=== PATIENT | female | born 1950 | race Caucasian/White ===

== ENCOUNTER 2019-01-07 14:45 | Inpatient (IN) ==
[2019-01-07] MEDS ORDERED: ASPIRIN PO ONE (14:54)
--- NOTE | 2019-01-07 15:03 | EKG Report ---
Test Performed on : 01/07/2019 2:48:48 PM Test Reason : cp Blood Pressure : / mmHG Vent. Rate : 138 BPM Atrial Rate : 276 BPM P-R Int : 000 ms QRS Dur : 082 ms QT Int : 360 ms P-R-T Axes : 000 007 075 degrees QTc Int : 545 ms Atrial flutter. with 2:1 AV conduction. Low voltage QRS ST elevation, consider lateral injury or acute infarct ACUTE UT / STEMI Abnormal ECG When compared with ECG of 25-SEP-2018 11:45, Significant changes have occurred Unconfirmed Result
[2019-01-07] MEDS ORDERED: NS 1,000 ML IV ONE ×2 (15:06→21:05)
[2019-01-07] MEDS ORDERED: CARDIZEM IV ONE (15:07)
--- NOTE | 2019-01-07 15:54 | Diag Imaging Result Doc PS360 ---
EXAM: CHEST-1 VIEW INDICATION: SOB TECHNIQUE: One view COMPARISON: 09/25/2018 FINDINGS: The lungs are grossly clear. There is no discrete pleural fluid collection or pneumothorax. The cardiomediastinal silhouette and central vasculature are grossly unremarkable. IMPRESSION: No evidence of acute pathology by plain radiograph. Electronically signed by Je Ortiz 01/07/2019 3:52 PM
[2019-01-07 16:08] LABS: BASO# 0.03 X1000 (0.0-0.2); BASO% 0.2 % (0.0-0.8); EOS# 0.12 X1000 (0.0-0.7); EOS% 0.8 % (0.0-10.0); HEMATOCRIT 44.5 % (37.0-47.0); IMM GRAN# 0.05 X1000 (0.0-0.04); IMM GRAN% 0.4 % (0.0-0.5); LYMPH# 2.02 X1000 (1.2-3.4); LYMPH% 14.2 % (20.5-51.1); MCH 29.3 PG (27-31); MCHC 31.5 g/dL (33-37); MCV 93.1 FL (81-99); MONO# 1.09 X1000 (0.11-0.59); MONO% 7.7 % (1.7-9.3); MPV 9.6 FL (7.4-10.4); NEUT% 76.7 % (42.2-75.2); PLT 381 X1000 (130-400); RBC 4.78 XMIL (4.2-5.4); RDW 13.6 % (11.5-14.5); WBC 14.21 X1000 (4.8-10.8)
[2019-01-07 16:18] LABS: INR 1.19; PROTIME 16.1 Seconds (11.0-16.0)
[2019-01-07 16:19] LABS: PTT 36.1 Seconds (22.3-41.8)
[2019-01-07] MEDS ORDERED: LOPRESSOR IV ONE (16:45)
[2019-01-07 17:04] LABS: URINE SOURCE CLEAN CATCH
[2019-01-07 17:13] LABS: BILIRUBIN URINE NEGATIVE (NEGATIVE); BLOOD URINE NEGATIVE (NEGATIVE); COLOR YELLOW; GLUCOSE URINE NEGATIVE (NEGATIVE); KETONE URINE NEGATIVE (NEGATIVE); LEUKOCYTES URINE TRACE (NEGATIVE); NITRITE URINE NEGATIVE (NEGATIVE); PH URINE 5.5; PROTEIN URINE TRACE mg/dL (NEGATIVE); SP GRAVITY URINE 1.027; TURBIDITY URINE CLEAR (CLEAR); UROBILINOGEN URINE 2 mg/dL (NORMAL)
[2019-01-07 17:14] LABS: UR EPITHELIAL CELLS <10 /HPF (<10); URINE BACTERIA NEGATIVE /HPF; URINE RBC <10 /HPF (<10); URINE WBC <10 /HPF (<10)
[2019-01-07 17:22] LABS: AGAP 17; ALB/GLOB RATIO 1.4; ALBUMIN 4.3 g/dL (3.5-5.0); ALKALINE PHOSPHATASE 141 U/L (32-104); BUN 20 mg/dL (8-22); CALCIUM 9.6 mg/dL (8.8-10.2); CHLORIDE 101 mmol/L (98-107); CK PROFILE 28 U/L (24-173); COSMO 280; CREATININE 0.8 mg/dL (0.5-0.9); ESTIMATED GFR > 60; GLUCOSE 89 mg/dL (70-104); GOT 27 U/L (10-30); GPT 33 U/L (10-36); POTASSIUM 4.6 mmol/L (3.5-5.1); SODIUM 139 mmol/L (136-145); TCO2 21 mmol/L (25-35); TOTAL BILIRUBIN 0.25 mg/dL (0.20-1.00); TOTAL PROTEIN 7.3 g/dL (6.3-8.3)
[2019-01-07] MEDS ORDERED: LASIX IV ONE (17:27)
[2019-01-07] MEDS ORDERED: LANOXIN IV ONE (17:36)
--- NOTE | 2019-01-07 17:51 | PROVIDER DOCUMENTATION ---
This chart was entered by Karyna Edwards Scribe, acting as scribe for Woodrow Royal MD. HPI-Cardiac General - General Chief Complaint: Palpitations Stated Complaint: HIGH HEART RATE Time Seen by Provider: 01/07/19 15:00 Source: patient Allergies/Adverse Reactions: Patient Allergies Allergy/AdvReac Type Severity Reaction Status Date / Time ciprofloxacin [From Cipro] Allergy ITCHING Verified 09/25/18 12:11 Iodinated Contrast- Oral and Allergy HIVES Verified 09/25/18 12:11 IV Dye [IV Dye] - History of Present Illness-Cardiac Nature of Presenting Problem: Patient is a 68 year old female who presents to the ED with palpitations. Patient states she was at Dr. Alvarez office and was informed her heart rate was elevated. Patient denies chest pain and shortness of breath. Location: reports: central Quality of Pain: reports: none Severity in ED: mild Onset/Duration: unsure Timing: still present Context/Activities at Onset: reports: light activity Modifying Factors: improves with: nothing Palpitation Quality: fast/pounding heart beat Associated Symptoms: reports: denies symptoms Similar Symptoms Previously?: No Recently Seen Here or By Another Healthcare Provider: Yes Review of Systems - Adult - REVIEW OF SYSTEMS - ADULT Constitutional: reports: no symptoms reported Eyes: reports: no symptoms reported Ears, Nose, Mouth & Throat: reports: no symptoms reported Cardiovascular: reports: no symptoms reported Respiratory: reports: no symptoms reported Gastrointestinal: reports: no symptoms reported Genitourinary: reports: no symptoms reported Musculoskeletal: reports: no symptoms reported Integumentary: reports: no symptoms reported Neurological: reports: no symptoms reported Psychiatric: reports: no symptoms reported Endocrine: reports: no symptoms reported Hematologic/Lymphatic: reports: no symptoms reported Allergic/Immunologic: reports: no symptoms reported All Other Systems: Reviewed and Negative Past History - Adult - PAST MEDICAL HISTORY-ADULT Review of Records: reports: Nursing Assessment Review, Medications Reviewed, Social history reviewed & non-contributory. Major Childhood Illnesses: reports: denies history Cardiovascular: reports: A-Fib, HTN Respiratory: reports: denies history Gastrointestinal: reports: GERD Obstetrical/Gynecological: reports: denies history Genitourinary: reports: denies history Musculoskeletal: reports: denies history Neurological: reports: denies history Psychiatric: reports: denies history Endocrine/Immune: reports: Diabetes, thyroid disorder Other Conditions: reports: denies history - PRIOR SURGERIES/PROCEDURES Surgical/Procedure History: reports: cholecystectomy, BTL, tonsillectomy - IMMUNIZATION STATUS Childhood Immunizations: See Nurse Assessment Flu Vaccine: See Nurse Assessment - FAMILY HISTORY Family History: reviewed, not pertinent - SOCIAL HISTORY Smoking: cigarettes (former) Substance Use: denies Physical Exam-General - PHYSICAL EXAM-ADULT Initial Vital Signs Reviewed: Yes - CONSTITUTIONAL General Appearance: alert, no apparent distress - EYES Eyes: PERRL/EOMI - HEAD, EARS, NOSE, MOUTH & THROAT HENMT: moist mucous membranes - RESPIRATORY Respiratory: chest non-tender, lungs clear, normal breath sounds - CARDIOVASCULAR Cardiovascular: normal peripheral pulses, tachycardia - GASTROINTESTINAL (ABDOMEN) Abdominal Exam: normal bowel sounds, non tender, soft - MUSCULOSKELETAL Extremity: non-tender, normal inspection - SKIN Integumentary: normal color, normal turgor, warm/dry - NEUROLOGIC Neurologic: grossly normal - PSYCHIATRIC Psych/Mental Status: normal mood/affect, oriented x 3 Progress - PLAN OF CARE/RESULTS Progress/Plan/Lab Results: Vital Signs - 8 hr 01/07/19 14:50 01/07/19 17:47 Temperature 98.4 F Pulse Rate 138 H 127 H Respiratory Rate 20 Blood Pressure 136/95 O2 Sat by Pulse Oximetry 96 Laboratory Results - last 24 hr 01/07/19 01/07/19 01/07/19 15:10 15:10 15:10 WBC 14.21 H RBC 4.78 Hgb 14.0 Hct 44.5 MCV 93.1 MCH 29.3 MCHC 31.5 L RDW Std Deviation 13.6 Plt Count 381 MPV 9.6 Immature Gran % (Auto) 0.4 Neut % (Auto) 76.7 H Lymph % (Auto) 14.2 L Grant % (Auto) 7.7 Eos % (Auto) 0.8 Baso % (Auto) 0.2 Immature Gran # (Auto) 0.05 H Neut # (Auto) 10.90 H Lymph # (Auto) 2.02 Grant # (Auto) 1.09 H Eos # (Auto) 0.12 Baso # (Auto) 0.03 PT INR PTT (Actin FS) Sodium 139 Potassium 4.6 Chloride 101 Carbon Dioxide 21 L Anion Gap 17 BUN 20 Creatinine 0.8 Estimated GFR/1.73 m2 > 60 BUN/Creatinine Ratio 25 Glucose 89 Calculated Osmolality 280 Calcium 9.6 Total Bilirubin 0.25 AST 27 ALT 33 Alkaline Phosphatase 141 H Creatine Kinase 28 Troponin T Lcm-J-Untnbkobgos Pept 2662 H Total Protein 7.3 Albumin 4.3 Globulin 3.0 Albumin/Globulin Ratio 1.4 Urine Source Urine Color Urine Turbidity Urine pH Ur Specific [place] Urine Protein Ur Glucose (Stick) Ur Ketones (Stick) Urine Blood Urine Nitrite Urine Bilirubin Urobilinogen Dipstick Urine Leukocytes Urine WBC (Auto) Urine RBC (Auto) U Epithel Cells (Auto) Urine Bacteria (Auto) 01/07/19 01/07/19 01/07/19 15:10 15:10 16:46 WBC RBC Hgb Hct MCV MCH MCHC RDW Std Deviation Plt Count MPV Immature Gran % (Auto) Neut % (Auto) Lymph % (Auto) [place] % (Auto) Eos % (Auto) Baso % (Auto) Immature Gran # (Auto) Neut # (Auto) Lymph # (Auto) Grant # (Auto) Eos # (Auto) Baso # (Auto) PT 16.1 H INR 1.19 PTT (Actin FS) 36.1 Sodium Potassium Chloride Carbon Dioxide Anion Gap BUN Creatinine Estimated GFR/1.73 m2 BUN/Creatinine Ratio Glucose Calculated Osmolality Calcium Total Bilirubin AST ALT Alkaline Phosphatase Creatine Kinase Troponin T < 0.010 Vbz-[id number]-Rlxdifirlkc Pept Total Protein Albumin Globulin Albumin/Globulin Ratio Urine Source CLEAN CATCH Urine Color YELLOW Urine Turbidity CLEAR Urine pH 5.5 Ur Specific [place] 1.027 Urine Protein TRACE A Ur Glucose (Stick) NEGATIVE Ur Ketones (Stick) NEGATIVE Urine Blood NEGATIVE Urine Nitrite NEGATIVE Urine Bilirubin NEGATIVE Urobilinogen Dipstick 2 A Urine Leukocytes TRACE A Urine WBC (Auto) <10 Urine RBC (Auto) <10 U Epithel Cells (Auto) <10 Urine Bacteria (Auto) NEGATIVE Orders Category Date Time Status Cardiac Monitoring DIRECTED Care 01/07/19 14:54 Active Oxygen Therapy- ED Nursing DIRECTED Care 01/07/19 14:54 Active Saline Loc NOW Care 01/07/19 14:54 Active CHEST-1 VIEW [RAD] Stat Exams 01/07/19 14:54 Completed CBC WITH ELECTRONIC DIFF [HEME] Stat Lab 01/07/19 15:10 Completed CK PROFILE [SP CHEM] Stat Lab 01/07/19 15:10 Completed COMPREHENSIVE METABOLIC PANEL [CHEM] Stat Lab 01/07/19 15:10 Completed PRO B-NATRIURETIC PEPTIDE Stat Lab 01/07/19 15:10 Completed PROTIME WITH INR [COAG] Stat Lab 01/07/19 15:10 Completed PTT [COAG] Stat Lab 01/07/19 15:10 Completed TROPONIN T Stat Lab 01/07/19 15:10 Completed UA NIMS W/REFLEX CULT [URINALYSIS] Stat Lab 01/07/19 16:46 Completed URINE CULTURE [RM] Routine Lab 01/07/19 17:53 Received 0.9% Sodium Chloride Inj [Ns] 1,000 ml Med 01/07/19 15:06 Active IV 100 mls/hr Aspirin Med 01/07/19 14:54 Discontinued 325 mg PO NOW ONE Digoxin [Lanoxin] Med 01/07/19 17:36 Discontinued 500 microgm IV NOW ONE Diltiazem [Cardizem] Med 01/07/19 15:07 Discontinued 20 mg IV NOW ONE Furosemide [Lasix] Med 01/07/19 17:27 Discontinued 40 mg IV NOW ONE Metoprolol [Lopressor] Med 01/07/19 16:45 Discontinued 5 mg IV NOW ONE CP/SOB/Palp >45 yrs of Age Stat Oth 01/07/19 14:54 Ordered EKG [EKG] Stat Ther 01/07/19 14:47 Draft EKG [EKG] Stat Ther 01/07/19 17:03 Ordered EKG [EKG] Stat Ther 01/07/19 17:25 Ordered Result Diagrams: 01/07/19 15:10 01/07/19 15:10 - REASSESSMENT Reassessment #1 Time Reassessed: 18:20 Status: improving (HR 120'S. REMAINS COMFORTABLE. NO CHEST PAIN OR SOB. DISCUSSED WITH HOSPITALIST - WILL ADMIT AND REQUESTS CARDIOLOGY CONSULT) - EKG 1 Time of EKG reading by physician:: 14:48 EKG Read and Signed by:: Woodrow Royal EKG Interpretation (*Must complete 3 of following elements*): Abnormal Rate: 138 Rhythm: atrial flutter with 2:1 AV conduction QRS: other (low voltage) Comments: no STEMI present per Dr. Royal. 2 Time of EKG reading by physician:: 17:34 EKG Read and Signed by:: Woodrow Royal EKG Interpretation (*Must complete 3 of following elements*): Abnormal Rate: 127 Rhythm: atrial flutter with 2:1 AV conduction QRS: other (low voltage) Comments: nonspecific ST abnormality. - XRAY 1 XRAY Study: Chest Impression: See EMR Report ( EXAM: CHEST-1 VIEW INDICATION: SOB TECHNIQUE: One view COMPARISON: 09/25/2018 FINDINGS: The lungs are grossly clear. There is no discrete pleural fluid collection or pneumothorax. The cardiomediastinal silhouette and central vasculature are grossly unremarkable. IMPRESSION: No evidence of acute pathology by plain radiograph. Electronically signed by Je Ortiz 01/07/2019 3:52 PM 01/07/19 1552 Interpreting Physician: Je Ortiz MD Dictated Date/Time: 01/07/19 1551 cc: Woodrow Royal MD; Benny Segal DO) Departure - Departure Date of Disposition Decision: 01/07/19 Time of Disposition Decision: 17:48 DIAGNOSIS: Atrial flutter with rapid ventricular response Disposition: ADMITTED INPATIENT 09 Certified Medical Emergency: Emergent Condition: Fair Referrals and Follow-Ups: Benny Segal DO [Primary Care Provider] - - Critical Care Note This patient required my direct & personal management of CC.: Yes Total Time (mins): 50 Critical Care Statement: This patient required my direct personal management to treat or rule out processes, the absence of which, could potentiallly result in sudden, clinically significant life or limb threatening deterioration. Attestation - Physician/ HALEY Attestation Patient care was provided by Advanced Practice Provider:: No The physician spent face to face time with patient:: Yes Advanced Practice Provider documentation review:: Supervising physician onsite and consulted in the evaluation and care of this patient. The physician did have a face to face encounter with the patient. This chart was documented by the indicated scribe, (Karyna Edwards Scribe) and accurately reflects the services I performed and decisions made by me, Woodrow Royal MD, as attested by the provider's signature.
[2019-01-07] MEDS ORDERED: ZOFRAN IV PRN (21:05)
[2019-01-07] MEDS ORDERED: CARDIZEM 125/NS 125 MG/125 ML IVPB IV SCH (21:15)
[2019-01-07] MEDS ORDERED: TYLENOL PO PRN (21:15)
[2019-01-08] MEDS: ELIQUIS PO SCH ×3 (00:30→21:00)
[2019-01-08] MEDS: NORCO-10 PO SCH ×5 (00:32→20:55)
[2019-01-08] MEDS: XANAX PO PRN (00:36)
[2019-01-08 06:36] LABS: BASO# 0.03 X1000 (0.0-0.2); BASO% 0.3 % (0.0-0.8); EOS# 0.15 X1000 (0.0-0.7); EOS% 1.3 % (0.0-10.0); HEMATOCRIT 46.4 % (37.0-47.0); HEMOGLOBIN 14.6 g/dL (12.0-16.0); IMM GRAN# 0.03 X1000 (0.0-0.04); IMM GRAN% 0.3 % (0.0-0.5); LYMPH# 1.25 X1000 (1.2-3.4); LYMPH% 11.1 % (20.5-51.1); MCH 29.3 PG (27-31); MCHC 31.5 g/dL (33-37); MONO# 0.57 X1000 (0.11-0.59); MONO% 5.1 % (1.7-9.3); MPV 9.2 FL (7.4-10.4); NEUT# 9.19 X1000 (1.4-6.5); NEUT% 81.9 % (42.2-75.2); PLT 318 X1000 (130-400); RBC 4.99 XMIL (4.2-5.4); RDW 13.4 % (11.5-14.5); WBC 11.22 X1000 (4.8-10.8)
[2019-01-08 07:10] LABS: AGAP 15; BUN 13 mg/dL (8-22); CALCIUM 8.6 mg/dL (8.8-10.2); CHLORIDE 100 mmol/L (98-107); COSMO 277; CREATININE 0.8 mg/dL (0.5-0.9); ESTIMATED GFR > 60; GLUCOSE 86 mg/dL (70-104); MAGNESIUM 1.8 mg/dL (1.5-2.7); POTASSIUM 4.2 mmol/L (3.5-5.1); SODIUM 139 mmol/L (136-145); TCO2 24 mmol/L (25-35)
--- NOTE | 2019-01-08 07:18 | HISTORY AND PHYSICAL ---
PRIMARY CARE PROVIDER: Dr. Benny Segal. PRESALES SENIOR SPECIALIST: Dr. Saenz. CHIEF COMPLAINT: Palpitations. HISTORY OF PRESENT ILLNESS: Ms. Allison is a 68-year-old, female who presented to the ER with complaints of palpitations and her heart racing that started between 9:00 and 10:00 a.m. on 01/07/2019. The patient states also when her palpitations first began that she felt as though she could not take a deep breath and, due to this, was having some left chest discomfort, though, since that time, this has subsided. It has not returned and is not present at this time. She was actually at Dr. Alvarez's office. She sees Dr. Alvarez secondary to iron deficiency and does receive iron infusions with her. She states that she went for blood work today and all her labs were within normal limits. They did notice that her heart rate was elevated and did instruct her to come to the ER for further evaluation. The patient states that over the past 2-3 weeks, she has had 2 previous episodes where she felt her heart racing where she was having palpitations and could feel her heart kind of fluttering or skipping beats. She states it would come on and would subside, though, until today, she had not had any evaluation of this previously. She does have a history of having atrial fibrillation and atrial flutter in the past, and is status post ablation. This was performed by Dr. Kinney at [facility]. She is on chronic anticoagulation with Eliquis. She also does have a history of coronary artery disease as well, status post stent placement x2. She does have a history of having a pituitary tumor, status post pituitary gland removal, currently on therapy with hydrocortisone and desmopressin. The patient denies being sick recently or not feeling well. She denies any recent changes in any of her medicines or any new medicines. She denies any headache, dizziness, abdominal pain, nausea, vomiting, or diarrhea. She denies any dysuria or urinary frequency. She denies any pain, numbness, tingling, or swelling in the extremities. The patient has been complaining of some occasional cramps in her bilateral lower extremities. She states that for the past month now, she has been having occasional night sweats as well, though she denies any fever, body aches, or chills. Upon evaluation in the ER, she did have some mild leukocytosis with a white blood cell count of 14,210. She has been afebrile. Chest x-ray showed no acute disease. Urinalysis did show some trace leukocytes, though she is not symptomatic at this time. A urine culture has been placed. The patient was noted to have initial vital signs of temperature 98.4 degrees, heart rate 138, respirations 20, blood pressure is 136/95, oxygen saturation is 96% on room air. EKGs did show atrial flutter with a 2:1 AV conduction at a rate of 138. Previously, they had given Cardizem 20 mg IV push, digoxin 500 mcg IV, Lopressor 5 mg IV, and Lasix 40 mg IV, though the patient's heart rate did continue to be elevated in the 130s. She was ultimately placed on a Cardizem drip and since that time, her heart rate has markedly improved and is ranging in the 70s-80s at this time. Her blood pressure is within normal limits as well. She will be placed inpatient admission for further treatment and evaluation of her atrial flutter and a cardiology consult. REVIEW OF SYSTEMS: A 14 point review of systems was conducted with the patient. All were negative except for pertinent positives mentioned above in the HPI. PAST MEDICAL HISTORY: 1. History of atrial flutter and atrial fibrillation, status post ablation with Dr. Kinney at [facility]. 2. Coronary artery disease, status post stent placement x2. 3. Anxiety. 4. Hypertension. 5. History of pituitary tumor, status post pituitary gland removal. 6. Hypothyroidism. PAST SURGICAL HISTORY: 1. Pituitary gland removal. 2. Cardiac ablation. 3. Cardiac stent placement x2. 4. Cholecystectomy. 5. Tubal ligation. 6. Tonsillectomy. SOCIAL HISTORY: The patient is a former smoker. She smoked since the age of teenager and then quit smoking in 1991. She previously smoked 1 pack per day. There is no alcohol or illicit drug use. FAMILY HISTORY: Positive for her mother having a history of lymphoma and heart disease. Her father had heart disease and from a myocardial infarction at age 65. One of her brothers had lymphoma as well and the other has had a myocardial infarction. ALLERGIES: The patient reports allergies to ciprofloxacin and iodinated oral and IV contrast dye. HOME MEDICATIONS: 1. Xanax 1.5 mg tablet p.o. at bedtime. 2. Amlodipine 2.5 mg p.o. b.i.d. 3. Eliquis 5 mg p.o. b.i.d. 4. Aspirin 81 mg p.o. daily. 5. Atorvastatin 20 mg tablet p.o. at bedtime. 6. Vitamin D3 1000 units p.o. daily. 7. Vitamin B12 500 mcg p.o. b.i.d. 8. Desmopressin 0.05 mg tablet p.o. daily. 9. [place] 10 mg 1 p.o. q.6 hours p.r.n. for pain. 10. Cortef 10 mg p.o. q.a.m. 11. Cortef 5 mg p.o. with lunch. 12. Cortef 5 mg p.o. with supper. 13. Levothyroxine 112 mcg p.o. daily. 14. Lisinopril 20 mg p.o. daily. 15. Fish oil 1000 mg capsule 1 p.o. daily. 16. Protonix 40 mg p.o. daily. 17. MiraLAX 17 g p.o. every other day. 18. Carafate 1 g p.o. b.i.d. DIAGNOSTIC DATA: Laboratory Results: White blood cell count is 14,210, hemoglobin 14, hematocrit 44.5, platelet count is 381,000. PT 16.1, INR 1.19, PTT is 36.1. D-dimer is 0.29. Sodium 139, potassium 4.6, chloride 101, serum bicarb is 21, BUN 20, creatinine 0.8, glucose 89, calcium 9.6, magnesium 1.9. Liver function tests within normal limits except for alkaline phosphatase is slightly elevated at 141. CK 28, troponin less than 0.01. ProBNP is 2662. TSH is 0.02. Cortisol level is 9.1. Urinalysis was obtained via clean catch. It was positive for trace protein and leukocytes. It was negative for glucose, ketones, blood, nitrites, white blood cells, or bacteria. EKG did show atrial flutter with a 2:1 AV conduction at a rate of 120s-130s. Chest x-ray showed no evidence of acute pathology. PHYSICAL EXAMINATION: VITAL SIGNS: Temperature 98.4 degrees, heart rate 129, respirations 20, blood pressure is 146/112, oxygen saturation is 98% on room air. GENERAL: Ms. Allison is a very pleasant, 68-year-old, female. She was resting on the ER stretcher. She was in no acute distress. She was awake, alert, and able to answer questions appropriately. HEENT: Head is atraumatic, normocephalic. Pupils are equal, round, reactive to light, were 3 mm bilaterally and brisk. Oral mucosa is moist. Oropharynx is clear. NECK: Supple. Trachea midline. CARDIOVASCULAR: Patient has S1-S2 present. There were no murmurs, gallops, or rubs appreciated, with a tachycardic rate that is regular. PULMONARY: Patient has symmetrical chest expansion bilaterally. Lung sounds are clear to auscultation in bilateral full cerna. ABDOMEN: Soft, nontender, nondistended. Bowel sounds are present in all 4 quadrants. EXTREMITIES: No cyanosis, clubbing, or edema noted. Pulse, motor, and sensory were intact in all extremities. Radial pulses and pedal pulses were 2+ bilaterally. INTEGUMENTARY: The patient's skin is pink, warm, and dry. NEUROLOGICAL: The patient is alert and oriented to person, place, time, and situation. She is able to move all extremities. There are no focal neurological deficits noted. ASSESSMENT AND PLAN: 1. Atrial flutter. The patient did receive, previously, intravenous pushes of Cardizem, digoxin, and Lopressor without much improvement of her heart rate, though since being placed on a Cardizem drip, her heart rate has improved and is maintaining in the 70s and 80s. She is hemodynamically stable at this time. She is not reporting any chest pain or shortness of breath presently. Cardiac enzymes have been negative. We will continue with a series of cardiac enzymes. We will perform an echocardiogram in the morning. We have placed a consult with cardiology and we will await their evaluation and further recommendations for management. The patient will be continued on her regularly prescribed anticoagulation of Eliquis. She will be nothing per oral after midnight, until evaluated by cardiology. 2. Coronary artery disease, status post cardiac stent placement x2. We will continue her regularly prescribed aspirin as well as her antihypertensive and hyperlipidemic medications. 3. Hypertension. We will continue her Norvasc and lisinopril. 4. History of pituitary tumor, status post pituitary gland removal. We will continue her Cortef and desmopressin. 5. Hypothyroidism. We will continue her levothyroxine. 6. Deep vein thrombosis prophylaxis is being provided with Eliquis. 7. The patient has been placed on CIC with telemetry. She will have vital signs every 1 hour, do strict intake and output. We will repeat a CBC, BMP, and magnesium in the morning as well as her cardiac enzymes. The patient did have some leukocytosis and did have some trace leukocytes noted in her urine but she is asymptomatic. She does have asymptomatic bacteriuria. A urine culture has been placed and we are awaiting results at this time. Further orders and recommendations pending hospital course, diagnostic studies, and physician evaluation. Dictated by NIURKA Mcgee for Silas Alfredo MD cc: Silas Alfredo MD
[2019-01-08] MEDS: PRILOSEC PO SCH (07:40)
--- NOTE | 2019-01-08 07:56 | EKG Report ---
Test Performed on : 01/07/2019 8:58:20 PM Test Reason : Atrial Flutter Blood Pressure : / mmHG Vent. Rate : 129 BPM Atrial Rate : 258 BPM P-R Int : 000 ms QRS Dur : 086 ms QT Int : 394 ms P-R-T Axes : 000 008 066 degrees QTc Int : 577 ms Atrial flutter. with 2:[address]. [address] and T wave abnormality Abnormal ECG When compared with ECG of 07-JAN-2019 17:42, (Unconfirmed) Previous ECG has undetermined rhythm, needs review Unconfirmed Result
--- NOTE | 2019-01-08 08:03 | EKG Report ---
Test Performed on : 01/07/2019 5:34:38 PM Test Reason : SOB Blood Pressure : / mmHG Vent. Rate : 127 BPM Atrial Rate : 254 BPM P-R Int : 000 ms QRS Dur : 086 ms QT Int : 400 ms P-R-T Axes : 000 013 058 degrees QTc Int : 581 ms Atrial flutter. with 2:1 AV conduction. Low voltage QRS Nonspecific ST abnormality Abnormal ECG When compared with ECG of 07-JAN-2019 14:48, (Unconfirmed) No significant change was found Unconfirmed Result
[2019-01-08] MEDS: VITAMIN B-12 PO SCH ×2 (08:18→21:00)
[2019-01-08] MEDS: CARAFATE PO SCH ×2 (08:18→22:40)
[2019-01-08] MEDS: SYNTHROID PO SCH (08:18)
[2019-01-08] MEDS: DDAVP PO SCH (08:18)
[2019-01-08] MEDS: FISH OIL CONCENTRATE PO SCH (08:18)
[2019-01-08] MEDS: CORTEF PO SCH ×3 (08:18→16:58)
[2019-01-08] MEDS: PRINIVIL PO SCH (08:18)
[2019-01-08] MEDS: ASPIRIN EC PO SCH (08:18)
[2019-01-08] MEDS: VITAMIN D PO SCH (08:18)
[2019-01-08] MEDS ORDERED: NORVASC PO SCH (09:00)
--- NOTE | 2019-01-08 10:19 | ED EKG INTERP ---
This chart was entered by Miryam Luevano Scribe, acting as scribe for Anna Lipscomb MD. EKG Interpretation - EKG Time of EKG reading by physician:: 09:57 EKG Read and Signed by:: Anna Lipscomb EKG Interpretation (*Must complete 3 of following elements*): Abnormal Rate: 92 Rhythm: atrial flutter with variable AV block [place]: normal QRS: normal [place] Interval: normal Comments: nonspecific ST and T wave abnormality Attestation - Physician/ HALEY Attestation Patient care was provided by Advanced Practice Provider:: No The physician spent face to face time with patient:: Yes Advanced Practice Provider documentation review:: Supervising physician onsite and consulted in the evaluation and care of this patient. The physician did have a face to face encounter with the patient. This chart was documented by the indicated scribe, (Miryam Luevano Scribe) and accurately reflects the services I performed and decisions made by me, Anna Lipscomb MD, as attested by the provider's signature.
--- NOTE | 2019-01-08 10:36 | EKG Report ---
Test Performed on : 01/08/2019 09:57:47 AM Test Reason : aflutter Blood Pressure : / mmHG Vent. Rate : 092 BPM Atrial Rate : 368 BPM P-R Int : 000 ms QRS Dur : 088 ms QT Int : 360 ms P-R-T Axes : 000 002 063 degrees QTc Int : 445 ms Atrial flutter. with variable AV block. Nonspecific ST and T wave abnormality Abnormal ECG When compared with ECG of 07-JAN-2019 20:58, (Unconfirmed) Non-specific change in ST segment in Inferior leads ST no longer elevated in Anterior leads Unconfirmed Result
[2019-01-08] MEDS ORDERED: BETAPACE PO SCH (10:45)
[2019-01-08] MEDS ORDERED: CARDIZEM 125/NS 125 MG/125 ML IVPB IV SCH (13:41)
--- NOTE | 2019-01-08 14:19 | CARDIOLOGY CONSULTATION ---
DATE: 01/08/2019 REQUESTING PHYSICIAN: Consultation requested by the hospitalist service. REASON FOR CONSULTATION: Atrial fibrillation, rapid response. CHIEF COMPLAINT: Palpitations. HISTORY: Ms. Allison is a 68-year-old, female who presented to the credentialing assistant's office yesterday for followup on iron deficiency. They found that she had tachycardia with an irregular pulse beat and she was sent to the emergency room for evaluation. In the ER, they did an EKG that shows atrial fibrillation with rapid response. They have put her on Cardizem and her heart rate is better controlled. The patient does not feel any different. She could not tell when she went to the credentialing assistant's office that she was having any arrhythmia. She does not feel any different. She denies having any chest pain. She has felt somewhat tired and somewhat short of breath. She does admit that within the past 7 days, she has had some sensation of palpitations. No chest pain. No syncope. PAST MEDICAL HISTORY: Positive for atrial fibrillation which has been treated by the electrophysiology team of [facility] on 06/06/2016, performing ablation of supraventricular tachycardia and pulmonary vein isolation. She has hypertension, diabetes mellitus type 2, hyperlipidemia, pituitary adenoma, osteoarthritis, anxiety. She has had also coronary heart disease diagnosed by means of a stress test. She was not complaining of any chest pain, just fatigue. That has been treated with stents in 2016. She has had iron deficiency anemia treated. SURGICAL HISTORY: She had a pituitary adenoma removed, cholecystectomy, tonsillectomy, tubal ligation. SOCIAL HISTORY: She is . Lives with her . for 50 something years. She has 2 grown up children. Interestingly, her son and her daughter have both suffered myocardial infarctions. FAMILY HISTORY: Positive for coronary heart disease. SOCIAL HISTORY: The patient quit smoking in 1991. Not a drinker. HOME MEDICATIONS: At the time of this admission included alprazolam 1-1/2 tablets at bedtime, amlodipine 1 tablet twice a day, apixaban 1 tablet twice a day, aspirin 81 daily, atorvastatin 1 tablet at bedtime, vitamin D3, cyanocobalamin, hydrocortisone, levothyroxine, lisinopril, omega-3 fatty acids, Protonix, sucralfate. ALLERGIES: Ciprofloxacin and iodine dye. REVIEW OF SYSTEMS: Complains of tiredness, fatigue, some dyspnea, occasional puffiness of the legs. No other major issues. She does have chronic pain. She has a herniated disk in the back and she goes to a pain clinic. No other positives. PHYSICAL EXAMINATION: Vital Signs: Blood pressure is 122/82, pulse 78, respirations 15, temperature is 97.7 degrees. General: She is awake, alert, oriented, in no distress. HEENT: Unremarkable. Chest: Clear to auscultation and percussion. Heart: Heart sounds are irregularly irregular. Abdomen: Soft, nontender. Extremities: Showed no edema. Neurological Examination: Nonfocal. Moves 4 extremities. BLOOD WORK: Sodium is 139, potassium 4.2, BUN 13, creatinine 0.8. Prothrombin time 16.1, INR 1.19, PTT 36.1. D-dimer 0.29. Troponins have been checked a total of 3 times and they are negative. ProBNP 2662. Normal is up to 353. Chest x-ray on admission reported as evidence of no acute pathology. EKG done at 2:48 p.m. yesterday showed atrial flutter, 2:1 conduction. At 5:34 p.m., atrial flutter, 2:1 conduction. At 8:58 p.m., atrial flutter, 2:1 conduction. This morning at 9:57 in the morning, atrial flutter with variable AV block. No acute ischemic changes. IMPRESSION: 1. Patient with paroxysmal atrial flutter. This appears to be a recurrent arrhythmia. 2. History of chronic pain, on narcotics. Rule out sleep apnea syndrome. 3. Coronary heart disease. Previous stent to the circumflex and left anterior descending. 4. History of iron deficiency anemia. Her hemoglobin actually is normal with normal MCV. 5. History of hypertension. 6. 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 RECOMMENDATIONS: The patient, at this time, we will keep her on diltiazem. We will keep her on Eliquis and we will pursue direct current cardioversion. We are placing the patient back on sotalol 80 mg twice a day, which she was taking before. We will probably go ahead and discontinue the diltiazem drip if the heart rate is consistently below 80 beats per minute. We will give further recommendations after the cardioversion. She follows normally with Dr. Bennie Saenz so we will let him know about this patient's admission. cc: Everett De Jesus MD MTDD
--- NOTE | 2019-01-08 15:02 | ECHO REPORT ---
ORDER DATE: 01/08/2019 ECHOCARDIOGRAPHIC MEASUREMENTS: Interventricular septum 1.0 cm. Left ventricular posterior wall 1.0 cm. Diastolic diameter 5.6 cm. Left atrium 4.8 cm. Aorta 3.0 cm. SUMMARY OF 2-DIMENSIONAL IMAGING: The aortic valve leaflets are trileaflet. Pulmonic valve was normal. Tricuspid valve was normal. There is left atrial enlargement. Mitral valve was normal. Technically suboptimal study. Poor acoustic window. Peak velocity across the aortic valve less than 2 m/sec. There is no aortic stenosis or regurgitation. There is mild mitral regurgitation. Mild tricuspid regurgitation. Peak velocity across the tricuspid valve was 3 m/sec. Pulmonary artery systolic pressure of 50 mmHg. Atrial flutter/fibrillation noted. Normal left ventricular cavity size. Estimated ejection fraction of 55% to 60%. Endocardium not well visualized in all views. cc: Marcelo Maynard MD
[2019-01-08] MEDS ORDERED: VITAMIN B-12 PO SCH (21:00)
[2019-01-08] MEDS ORDERED: LIPITOR PO SCH (21:00)
--- NOTE | 2019-01-08 21:29 | PROGRESS NOTE ---
DATE: 01/08/2019 INTERVAL HISTORY: Ms. Allison was admitted for recurrent atrial fibrillation/atrial flutter. She had received multiple intravenous rate-controlling medications in the emergency room. Despite that, she was consistently having uncontrolled rate for about 8 hours inside the ED, and later on her heart rate had become controlled on diltiazem drip. No other acute overnight events. SUBJECTIVE: In the morning time, she is denying any chest pain, shortness of breath or palpitations anymore. We discussed about her current atrial flutter. Discussed about etiology and course, and I answered all of her questions. She is not listed to be taking beta-blockers, and she could not tell me the reason despite her history of coronary artery disease. The patient's family is at bedside. All of their questions have been answered. OBJECTIVE: Currently vital signs detect temperature of 97.7 degrees, pulse of 83 per minute, respiratory rate 26, blood pressure 136/88, saturating 96% on room air. On physical examination the patient does not appear in any acute distress. Oral cavity is moist. Air entry bilaterally equal. No wheeze, rhonchi or crackles. Irregularly irregular rhythm. S1, S2 normal. No murmur, rub or gallop. Abdomen is soft, nontender. She does have prominent jugular venous distention and positive hepatojugular reflux. She has bilateral lower extremity edema extending up to midshin level. On lunchroom monitor at bedside, she appears to have atrial flutter with controlled heart rate at the moment. LABORATORY DATA: Her labs are consistent with mild leukocytosis of 11,000. Stable hemoglobin, hematocrit and platelet count. Normal electrolytes and normal kidney function. Her troponins have been negative. ASSESSMENT AND PLAN: 1. Atrial fibrillation and atrial flutter on arrival. Continue intravenous diltiazem drip and apixaban, which was her home medication. I will appreciate Cardiology recommendations about possible cardioversion tomorrow. It looks like she has also been started on her home sotalol that she was taking previously. 2. History of coronary artery disease, status post cardiac stent twice in the past, at least more than 3 years ago. We will continue her aspirin, atorvastatin, lisinopril and [place]-3 fatty acids. 3. History of pituitary tumor, status post pituitary gland removal. Continue her home hydrocortisone, desmopressin, levothyroxine. 4. Chronic gastroesophageal reflux disease. Continue home omeprazole, sucralfate. 5. Continue alprazolam for anxiety; amlodipine for essential hypertension. 6. Deep venous thrombosis prophylaxis. She is already on Eliquis. 7. Disposition. The patient has transferred to cardiac intensive care unit; however, she is pending bed availability. Cardiology has started the patient on sotalol in addition to diltiazem drip. If her rhythm does not convert back, then the plan is to take her for cardioversion tomorrow. Plan of care was discussed with the patient and her at bedside. All of their questions have been answered. cc: Edson Edwards MD
[2019-01-08] MEDS: NORVASC PO SCH (21:55)
[2019-01-08] MEDS: BETAPACE PO SCH (21:55)
[2019-01-09] MEDS: XANAX PO PRN ×2 (01:27→21:08)
[2019-01-09] MEDS: NORCO-10 PO SCH ×3 (01:27→17:34)
[2019-01-09 05:50] LABS: AGAP 10; BUN 24 mg/dL (8-22); CALCIUM 8.5 mg/dL (8.8-10.2); CHLORIDE 102 mmol/L (98-107); COSMO 279; CREATININE 0.7 mg/dL (0.5-0.9); ESTIMATED GFR > 60; GLUCOSE 121 mg/dL (70-104); MAGNESIUM 1.9 mg/dL (1.5-2.7); POTASSIUM 4.1 mmol/L (3.5-5.1); SODIUM 137 mmol/L (136-145); TCO2 25 mmol/L (25-35)
[2019-01-09] MEDS: PRILOSEC PO SCH (06:29)
[2019-01-09] MEDS: SYNTHROID PO SCH (06:29)
--- NOTE | 2019-01-09 07:49 | EKG Report ---
Test Performed on : 01/09/2019 07:20:28 AM Test Reason : aflutter Blood Pressure : / mmHG Vent. Rate : 077 BPM Atrial Rate : 241 BPM P-R Int : 000 ms QRS Dur : 100 ms QT Int : 374 ms P-R-T Axes : 000 005 -36 degrees QTc Int : 423 ms Atrial fibrillation. Nonspecific ST and T wave abnormality Abnormal ECG When compared with ECG of 08-JAN-2019 09:57, Atrial fibrillation. has replaced Atrial flutter. Nonspecific T wave abnormality, improved in Lateral leads Unconfirmed Result
[2019-01-09] MEDS: ASPIRIN EC PO SCH (08:27)
[2019-01-09] MEDS: CARAFATE PO SCH ×2 (08:27→20:50)
[2019-01-09] MEDS: NORVASC PO SCH ×2 (08:27→20:50)
[2019-01-09] MEDS: ELIQUIS PO SCH ×2 (08:27→20:50)
[2019-01-09] MEDS: CORTEF PO SCH ×3 (08:27→17:34)
[2019-01-09] MEDS: PRINIVIL PO SCH (08:27)
[2019-01-09] MEDS: BETAPACE PO SCH ×2 (08:27→20:50)
[2019-01-09] MEDS: VITAMIN B-12 PO SCH ×2 (08:28→20:50)
[2019-01-09] MEDS: DDAVP PO SCH (08:28)
[2019-01-09] MEDS: VITAMIN D PO SCH (08:28)
[2019-01-09] MEDS: FISH OIL CONCENTRATE PO SCH (08:28)
[2019-01-09] MEDS ORDERED: MIRALAX PO SCH (09:00)
[2019-01-09] MEDS ORDERED: DIPRIVAN 1% ONE (09:41)
[2019-01-09] MEDS ORDERED: NS 500 ML ONE (10:13)
[2019-01-09] MEDS ORDERED: CLAVE PUMP SET NO FILTER 12260 ONE (10:13)
[2019-01-09] MEDS ORDERED: CLAVE TWINSITE 32 IN 11959 ONE (10:13)
--- NOTE | 2019-01-09 11:27 | EKG Report ---
Test Performed on : 01/09/2019 11:22:01 AM Test Reason : S/P CVN Blood Pressure : / mmHG Vent. Rate : 056 BPM Atrial Rate : 056 BPM P-R Int : 188 ms QRS Dur : 102 ms QT Int : 424 ms P-R-T Axes : 050 014 014 degrees QTc Int : 409 ms Sinus bradycardia. Otherwise normal ECG When compared with ECG of 09-JAN-2019 07:20, (Unconfirmed) Sinus rhythm. has replaced Atrial fibrillation. Unconfirmed Result
--- NOTE | 2019-01-09 11:52 | CARDIAC CATH REPORT ---
PROCEDURE NAME: - SUMMARY: After intravenous conscious sedation per Anesthesiology with propofol, synchronous direct current cardioversion with 200 J biphasic was performed, converting atrial fibrillation to sinus rhythm. The patient tolerated the procedure without apparent complications. CONCLUSIONS: Successful cardioversion of atrial fibrillation to sinus rhythm. cc: Иван Mcintosh MD
--- NOTE | 2019-01-09 16:04 | PROGRESS NOTE ---
DATE: 01/09/2019 SUBJECTIVE: Patient has no major complaints. She is status post cardioversion. Seems to be doing okay. OBJECTIVE: Vital Signs: Heart rates in the 90s, blood pressure 128/67, heart rate 80, respiratory rate 16, temperature 97.2 degrees, satting 99% on 2 L. Cardiovascular: Regular rate and rhythm. Pulmonary: Bilateral breath sounds. Clear to auscultation. GI: Soft, nontender, nondistended. Bowel sounds are positive. LABORATORY DATA: Her basic was normal. PROBLEM LIST: 1. Atrial fibrillation with rapid ventricular response. She is on status post cardioversion. Cardiology feels she can be discharged later today, but we are waiting on other recommendations, and she is on sotalol 80 twice daily and already on Eliquis. 2. Coronary artery disease. We will continue her regular medications, aspirin, atorvastatin, lisinopril. 3. Pituitary adenoma. She is on hydrocortisone, desmopressin and Synthroid. DISPOSITION: I anticipate if she is stable, she can be discharged tomorrow. We will encourage ambulation just to test out her cardiac function and follow. cc: Amanuel Hathaway MD
[2019-01-09] MEDS ORDERED: LIPITOR PO SCH (21:00)
[2019-01-10] MEDS: NORCO-10 PO SCH ×2 (00:03→06:15)
[2019-01-10] MEDS: PRILOSEC PO SCH (06:15)
[2019-01-10] MEDS: SYNTHROID PO SCH (06:15)
--- NOTE | 2019-01-10 08:00 | EKG Report ---
Test Performed on : 01/10/2019 06:43:27 AM Test Reason : aflutter Blood Pressure : / mmHG Vent. Rate : 065 BPM Atrial Rate : 065 BPM P-R Int : 166 ms QRS Dur : 088 ms QT Int : 422 ms P-R-T Axes : 047 010 024 degrees QTc Int : 438 ms Normal sinus rhythm. Low voltage QRS Nonspecific ST abnormality Abnormal ECG When compared with ECG of 09-JAN-2019 11:22, (Unconfirmed) No significant change was found Unconfirmed Result
[2019-01-10 08:11] VITALS: BP 107/56
[2019-01-10] MEDS: CARAFATE PO SCH (10:11)
[2019-01-10] MEDS: PRINIVIL PO SCH (10:11)
[2019-01-10] MEDS: ELIQUIS PO SCH (10:11)
[2019-01-10] MEDS: VITAMIN B-12 PO SCH (10:11)
[2019-01-10] MEDS: ASPIRIN EC PO SCH (10:12)
[2019-01-10] MEDS: NORVASC PO SCH (10:12)
[2019-01-10] MEDS: CORTEF PO SCH (10:13)
[2019-01-10] MEDS: BETAPACE PO SCH (10:13)
[2019-01-10] MEDS: VITAMIN D PO SCH (10:13)
[2019-01-10] MEDS: FISH OIL CONCENTRATE PO SCH (10:13)
[2019-01-10] MEDS: DDAVP PO SCH (11:49)
--- NOTE | 2019-01-10 18:52 | DISCHARGE SUMMARY ---
ADMISSION DATE: 01/07/2019 DISCHARGE DATE: 01/10/2019 DISCHARGE DIAGNOSIS: 1. Atrial fibrillation, atrial flutter with rapid ventricular response. 2. Chronic pain disease. 3. Coronary artery disease . 4. Iron deficiency anemia. 5. Hypertension. 6. Panhypopituitarism related to a pituitary adenoma. PROCEDURES: Direct current cardioversion. CONSULTATIONS: Cardiology. Briefly this is a 68-year-old female with recurrent atrial flutter. She was admitted for treatment had been on Cardizem, digoxin and Lopressor and finally Cardizem drip with good control. Cardiology was consulted. Serial cardiac enzymes were negative. Her echocardiogram showed EF was intact at 55 to 60 percent. No major valvular abnormalities. They recommended sotalol which she had been on previously and then cardioversion. She was maintained on her regular medications. Dr. Mcintosh performed cardioversion on the with 200 joules of biphasic energy. Patient was stable. Family was concerned about her going home because she had not ambulated, we worked on ambulation make sure her heart rate was stable and on the heart rate has maintained no higher than 105 which was actually before the cardioversion and she is normal sinus. DISCHARGE MEDICATIONS: Xanax 0.5 1-1/2 daily, atorvastatin 20 daily, [place] 10 q.6 hours p.r.n. pain, amlodipine 2.5 b.i.d., vitamin B12 500 mcg b.i.d., Carafate 1 g b.i.d., Cortef 10 daily, Cortef 0.5 on Sunday and 5 mg at dinner and 5 mg with lunch, DDAVP 0.5 daily, aspirin 81 daily, Eliquis 5 b.i.d., omega-3 fatty acids daily, lisinopril 20 daily, MiraLAX 17 daily, pantoprazole 40 daily, Synthroid 112 daily, vitamin D3 1000 units daily and sotalol 80 b.i.d. She has followup with her primary collaborating supervising physician in 4 to 6 weeks, PCP 1-2 weeks, Dr. Segal, refer Dr. Segal for further management. Return for worsening heart rate or chest pain. TIME SPENT: 35 minutes . cc: Amanuel Hathaway MD [facility]
== END 2019-01-10 12:40 | disposition home or self-care (01) | DRG 310 ==
LOC: ED 14:45 → EDIPHOLD 21:33 → SUATTDRO 21:33 → 3S 01-09 00:27
PROVIDERS: ATTEND Internal Medicine
CPT/HCPCS: 71010; 71045; 80048; 80053; 81001; 82533; 82550; 83735; 83880; 84443; 84484; 85025; 85379; 85610; 85730; 87088; 92960; 93005; 93010; 93306; 96361; 96365; 96366; 96375; 99285; 99291; A9270; J1160; J1940; J7030; J7040

== ENCOUNTER 2019-02-02 11:44 | Observation (INO) ==
[2019-02-02 12:21] LABS: BASO# 0.06 X1000 (0.0-0.2); BASO% 0.6 % (0.0-0.8); EOS# 0.33 X1000 (0.0-0.7); EOS% 3.1 % (0.0-10.0); HEMATOCRIT 42.7 % (37.0-47.0); HEMOGLOBIN 13.9 g/dL (12.0-16.0); IMM GRAN# 0.04 X1000 (0.0-0.04); IMM GRAN% 0.4 % (0.0-0.5); LYMPH# 1.91 X1000 (1.2-3.4); LYMPH% 17.7 % (20.5-51.1); MCHC 32.6 g/dL (33-37); MONO# 0.92 X1000 (0.11-0.59); MONO% 8.5 % (1.7-9.3); MPV 8.7 FL (7.4-10.4); NEUT# 7.54 X1000 (1.4-6.5); NEUT% 69.7 % (42.2-75.2); PLT 345 X1000 (130-400); RBC 4.64 XMIL (4.2-5.4); RDW 13.9 % (11.5-14.5)
[2019-02-02] MEDS ORDERED: CARDIZEM IV ONE ×2 (12:24→12:54)
[2019-02-02] MEDS ORDERED: ASPIRIN PO ONE (12:33)
[2019-02-02 12:53] LABS: AGAP 11; ALB/GLOB RATIO 1.2; ALBUMIN 3.8 g/dL (3.5-5.0); ALKALINE PHOSPHATASE 124 U/L (32-104); BUN 25 mg/dL (8-22); CALCIUM 8.9 mg/dL (8.8-10.2); CHLORIDE 106 mmol/L (98-107); COSMO 288; CREATININE 0.9 mg/dL (0.5-0.9); ESTIMATED GFR > 60; GLUCOSE 140 mg/dL (70-104); GOT 16 U/L (10-30); GPT 19 U/L (10-36); MAGNESIUM 1.8 mg/dL (1.5-2.7); POTASSIUM 4.3 mmol/L (3.5-5.1); SODIUM 141 mmol/L (136-145); TCO2 24 mmol/L (25-35); TOTAL BILIRUBIN 0.23 mg/dL (0.20-1.00); TOTAL PROTEIN 6.9 g/dL (6.3-8.3)
--- NOTE | 2019-02-02 14:44 | PROVIDER DOCUMENTATION ---
This chart was entered by Miryam Luevano Scribe, acting as scribe for Gunjan Santos MD. HPI-Chest Pain - General Chief Complaint: B/P Problems Stated Complaint: HR/BP HIGH Time Seen by Provider: 02/02/19 11:58 Source: patient Allergies/Adverse Reactions: Patient Allergies Allergy/AdvReac Type Severity Reaction Status Date / Time ciprofloxacin [From Cipro] Allergy ITCHING Verified 09/25/18 12:11 Iodinated Contrast- Oral and Allergy HIVES Verified 09/25/18 12:11 IV Dye [IV Dye] Home Medications: Home Medication List Medication Instructions Recorded Confirmed Last Taken Type Alprazolam 1.5 tab PO QHS 01/07/19 01/07/19 Unknown History Amlodipine Besylate 1 tab PO BID 01/07/19 01/07/19 Unknown History Apixaban [Eliquis] 1 tab PO BID 01/07/19 01/07/19 Unknown History Aspirin [Ecotrin] 81 mg PO DAILY 01/07/19 01/07/19 Unknown History Atorvastatin Calcium 1 tab PO QHS 01/07/19 01/07/19 Unknown History Cholecalciferol (Vitamin D3) 1,000 unit PO DAILY 01/07/19 01/07/19 Unknown History [Vitamin D3] Cyanocobalamin (Vitamin B-12) 500 mcg PO BID 01/07/19 01/07/19 01/07/19 History [B-12] Desmopressin [Ddavp] 0.5 tab PO DAILY 01/07/19 01/07/19 Unknown History Hydrocodone/Acetaminophen [[place] 1 ea PO Q6HR 01/07/19 01/07/19 Unknown History 10-325 Tablet] Hydrocortisone [Cortef] 0.5 tab PO WLUNCH 01/07/19 01/07/19 Unknown History Hydrocortisone [Cortef] 0.5 tab PO WSUPPER 01/07/19 01/07/19 Unknown History Hydrocortisone [Cortef] 1 tab PO QAM 01/07/19 01/07/19 Unknown History Levothyroxine [Synthroid] 1 tab PO DAILY 01/07/19 01/07/19 Unknown History Lisinopril 1 tab PO DAILY 01/07/19 01/07/19 Unknown History [place]-3 Fatty Acids/Fish Oil [Fish 1 ea PO DAILY 01/07/19 01/07/19 Unknown History Oil 1,000 mg Capsule] Pantoprazole Sodium 1 tab PO DAILY 01/07/19 01/07/19 Unknown History Polyethylene Glycol 3350 [Miralax] 17 gm PO EVERY OTHER DAY 01/07/19 01/07/19 Unknown History Sucralfate [Carafate] 1 gm PO BID 01/07/19 01/07/19 Unknown History Sotalol [Betapace] 80 mg PO BID #60 tab 01/10/19 Unknown Rx - History of Present Illness-CP Nature of Presenting Problem: 68 yof presents to the ed with c/o palpitations, left sided chest pain onset at 0100am 01/22 pain but sts can not describe the pain. pt sx chest pain resolved [employer] to the ed. still feels the palpitation. denies SOB, dizziness, N/V, lightheadedness. Location: reports: other (left anterior chest) Chest Pain Radiation: reports: no radiation Quality of Pain: reports: other (unable to describe pain) Severity in ED: mild (01/22) Onset/Duration: this morning (0100am) Timing: gone now (resolved [employer]) Context/Activities at Onset: reports: light activity Modifying Factors: improves with: nothing Associated Symptoms: denies: abdominal pain, dizziness, fatigue, nausea, shortness of breath, vomiting Aspirin Treatment Today: 325 mg x 1, provided by ED Similar Symptoms Previously?: Yes Recently Seen Here or By Another Healthcare Provider: No Review of Systems - Adult - REVIEW OF SYSTEMS - ADULT Constitutional: denies: chills, fever Eyes: reports: no symptoms reported Ears, Nose, Mouth & Throat: reports: no symptoms reported Cardiovascular: reports: see HPI, chest pain, palpitations. denies: syncope Respiratory: denies: cough, shortness of breath, wheezing Gastrointestinal: reports: no symptoms reported Genitourinary: reports: no symptoms reported Musculoskeletal: denies: back pain, neck pain Integumentary: reports: no symptoms reported Neurological: denies: dizziness/vertigo, headache/migraines Past History - Adult - PAST MEDICAL HISTORY-ADULT Review of Records: reports: Nursing Assessment Review, Medications Reviewed Major Childhood Illnesses: reports: denies history Cardiovascular: reports: A-Fib, HTN Respiratory: reports: denies history Gastrointestinal: reports: GERD Obstetrical/Gynecological: reports: denies history Genitourinary: reports: denies history Musculoskeletal: reports: denies history Neurological: reports: denies history Psychiatric: reports: denies history Endocrine/Immune: reports: Diabetes, thyroid disorder Diabetes Type: Type 2 Other Conditions: reports: denies history - PRIOR SURGERIES/PROCEDURES Surgical/Procedure History: reports: cholecystectomy, BTL, tonsillectomy - IMMUNIZATION STATUS Childhood Immunizations: See Nurse Assessment Flu Vaccine: See Nurse Assessment - FAMILY HISTORY Family History: reviewed, not pertinent - SOCIAL HISTORY Smoking: quit greater than 1 year Substance Use: denies Alcohol Use Frequency: never Living Situation: family Physical Exam-General - CONSTITUTIONAL General Appearance: appears well, alert, no apparent distress - EYES Eyes: PERRL/EOMI - HEAD, EARS, NOSE, MOUTH & THROAT HENMT: normocephalic/atraumatic - NECK Neck: non-tender, full range of motion, supple - RESPIRATORY Respiratory: chest non-tender, lungs clear, normal breath sounds - CARDIOVASCULAR Cardiovascular: normal peripheral pulses, no murmur, tachycardia (regular rhythm) - GASTROINTESTINAL (ABDOMEN) Abdominal Exam: normal bowel sounds, non tender, soft - SKIN Integumentary: normal color, normal turgor - NEUROLOGIC Neurologic: grossly normal - PSYCHIATRIC Psych/Mental Status: normal thought content, normal thought process, oriented x 3 - HEART Score HEART Score: History: Moderately Suspicious HEART Score: ECG: Non-Specific Repolarization Disturbance/LBBB/PM HEART Score: Age: > or = 65 Years HEART Score: Risk Factors for Atherosclerotic Disease: > or = 3 Risk Factors or History of Atherosclerotic Disease HEART Score: Troponin: < or = Normal Limit Total HEART Score:: 6 Progress - PLAN OF CARE/RESULTS Progress/Plan/Lab Results: Vital Signs - 8 hr 02/02/19 11:49 02/02/19 12:06 02/02/19 12:10 Temperature 97.7 F Pulse Rate 126 H 127 H 126 H Respiratory Rate 18 18 16 Blood Pressure 151/98 O2 Sat by Pulse Oximetry 96 97 95 02/02/19 12:20 02/02/19 12:28 02/02/19 12:30 Temperature Pulse Rate 127 H 126 H 126 H Respiratory Rate 16 15 14 Blood Pressure 126/88 O2 Sat by Pulse Oximetry 94 L 94 L 95 02/02/19 12:40 02/02/19 12:50 02/02/19 13:00 Temperature Pulse Rate 126 H 124 H 124 H Respiratory Rate 16 17 16 Blood Pressure O2 Sat by Pulse Oximetry 95 94 L 94 L 02/02/19 13:01 02/02/19 13:10 02/02/19 13:16 Temperature Pulse Rate 124 H 82 83 Respiratory Rate 14 17 21 Blood Pressure 116/79 116/79 O2 Sat by Pulse Oximetry 93 L 94 L 98 Laboratory Results - last 24 hr 02/02/19 02/02/19 02/02/19 12:14 12:14 12:14 WBC 10.80 RBC 4.64 Hgb 13.9 Hct 42.7 MCV 92.0 MCH 30.0 MCHC 32.6 L RDW Std Deviation 13.9 Plt Count 345 MPV 8.7 Immature Gran % (Auto) 0.4 Neut % (Auto) 69.7 Lymph % (Auto) 17.7 L [place] % (Auto) 8.5 Eos % (Auto) 3.1 Baso % (Auto) 0.6 Immature Gran # (Auto) 0.04 Neut # (Auto) 7.54 H Lymph # (Auto) 1.91 Mcmullen # (Auto) 0.92 H Eos # (Auto) 0.33 Baso # (Auto) 0.06 Sodium 141 Potassium 4.3 Chloride 106 Carbon Dioxide 24 L Anion Gap 11 BUN 25 H Creatinine 0.9 Estimated GFR/1.73 m2 > 60 BUN/Creatinine Ratio 28 Glucose 140 H Calculated Osmolality 288 Calcium 8.9 Magnesium 1.8 Total Bilirubin 0.23 AST 16 ALT 19 Alkaline Phosphatase 124 H Troponin T < 0.010 Total Protein 6.9 Albumin 3.8 Globulin 3.1 Albumin/Globulin Ratio 1.2 Orders Category Date Time Status Nursing- MD Consult Request ROUTINE Care 02/02/19 14:18 Active Physician/Provider Consults Routine Cons 02/02/19 14:18 Ordered CBC WITH ELECTRONIC DIFF [HEME] Stat Lab 02/02/19 12:14 Completed CMP [COMPREHENSIVE METABOLIC PANEL] [CHEM] Stat Lab 02/02/19 12:14 Completed MAGNESIUM [CHEM] Stat Lab 02/02/19 12:14 Completed TROPONIN T Stat Lab 02/02/19 12:14 Completed Aspirin Med 02/02/19 12:33 Discontinued 325 mg PO NOW ONE Diltiazem [Cardizem] Med 02/02/19 12:24 Discontinued 15 mg IV NOW ONE Diltiazem [Cardizem] Med 02/02/19 12:54 Discontinued 20 mg IV NOW ONE EKG [EKG] Stat Ther 02/02/19 11:52 Ordered EKG [EKG] Stat Ther 02/02/19 13:21 Ordered Transfer/Admit Order [TRANSFER] Routine Transfer 02/02/19 14:15 Ordered Result Diagrams: 02/02/19 12:14 02/02/19 12:14 - REASSESSMENT Reassessment #1 Time Reassessed: 12:15 ( at side) Status: unchanged Reassessment #2 Time Reassessed: 13:34 (cardiazem converted) Status: improving Reassessment Comment: at bedside - EKG 1 Time of EKG reading by physician:: 11:56 EKG Read and Signed by:: Gunjan Santos EKG Interpretation (*Must complete 3 of following elements*): Abnormal Rate: 128 Rhythm: atrial flutter with 2:1 AV conduction [place]: normal QRS: other (low voltage qrs) NM Interval: normal Comments: nonspecific ST and T wave abnormality 2 Time of EKG reading by physician:: 13:31 EKG Read and Signed by:: Benny Segal EKG Interpretation (*Must complete 3 of following elements*): Abnormal Rate: 85 Rhythm: atrial flutter with variable AV block [place]: normal QRS: RBB (incomplete), other (low voltage qrs) NM Interval: normal ST Wave: normal Prior EKG Comparison: changes noted - CONSULTS/PCP/HOSPITALIST Notification #1 *Consult/PCP/Hospitalist*: hospitalist dr pitts Time Discussed: 13:33 (spoke with timi) Consult Disposition: Admit (Hx, PE and patient care discussed with JOSE MARIA Thomas, accepted.) #2 Consult: dr sanchez insurance account assistant Reason/Comments: phone consult Consult Disposition: other (Diltiazem) Departure - Departure Date of Disposition Decision: 02/02/19 Time of Disposition Decision: 13:33 DIAGNOSIS: Chest pain Qualifiers: Chest pain type: unspecified Qualified Code(s): R07.9 - Chest pain, unspecified Atrial flutter Qualifiers: Atrial flutter type: unspecified Qualified Code(s): I48.92 - Unspecified atrial flutter Disposition: ADMITTED INPATIENT 09 Certified Medical Emergency: Emergent Condition: Stable - Critical Care Note This patient required my direct & personal management of CC.: Yes Total Time (mins): 36 Critical Care Statement: This patient required my direct personal management to treat or rule out processes, the absence of which, could potentiallly result in sudden, clinically significant life or limb threatening deterioration. Attestation - Physician/ HALEY Attestation Patient care was provided by Advanced Practice Provider:: No The physician spent face to face time with patient:: Yes Advanced Practice Provider documentation review:: Supervising physician onsite and consulted in the evaluation and care of this patient. The physician did have a face to face encounter with the patient. This chart was documented by the indicated scribe, (Miryam Luevano Scribe) and accurately reflects the services I performed and decisions made by me, Gunjan Santos MD, as attested by the provider's signature.
[2019-02-02] MEDS ORDERED: TYLENOL PO PRN (14:47)
[2019-02-02] MEDS ORDERED: ZOFRAN IV PRN (14:47)
--- NOTE | 2019-02-02 15:51 | HISTORY AND PHYSICAL ---
PRIMARY CARE PHYSICIAN: Dr. Benny Segal. STOGY ROLLER: Dr. Bennie Saenz. CHIEF COMPLAINT: Chest pain. HISTORY OF PRESENT ILLNESS: Mrs. Allison is a 68-year-old female with a known history of paroxysmal atrial fibrillation, coronary artery disease, iron deficiency anemia, who presents with chest discomfort that started around 1:00 this morning. She did not go to sleep but was lying on bed when she began having a discomfort in the chest, more pressure like nonradiating, not associated with dyspnea, nausea, vomiting, or diaphoresis. She checked her blood pressure and heart rate and they were both elevated, so she decided to come to the ER for evaluation. In the ER, she was noted to be in atrial fibrillation with a rapid rate. She was given IV Cardizem, which did improve her rate. However, she still appears to be in atrial fibrillation. Her pain has improved to negligible level. She denies any exertional chest pain, exertional dyspnea, lower extremity edema, or orthopnea. Her laboratory data is unremarkable. Chest x-ray has not been done, but has been ordered. Her vitals are stable. She will be admitted for observation status. Cardiology has been consulted. PAST MEDICAL HISTORY: 1. Recurrent atrial flutter, status post DC cardioversion, on anticoagulation. 2. Chronic pain. 3. Coronary artery disease. 4. Iron deficiency anemia. 5. Hypertension. 6. 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 7. Hypothyroidism. 8. Vitamin D deficiency. PAST SURGICAL HISTORY: She has had a recent DC cardioversion, cholecystectomy, tubal ligation, tonsillectomy, pituitary adenoma excision, and pulmonary vein isolation/ablation. SOCIAL HISTORY: She has a remote history of smoking, but no current tobacco, alcohol or drug use. FAMILY HISTORY: Noncontributory. REVIEW OF SYSTEMS: A 14-point review of systems was obtained and found to be negative with the exception of the HPI. ALLERGIES: Cipro and IV dye. HOME MEDICATIONS: Currently being compiled by the nursing staff. PHYSICAL EXAMINATION: VITAL SIGNS: Blood pressure is 127/71, heart rate is 85, respiratory rate 20, O2 saturation is 93% on room air. Temperature is 98.6. GENERAL: This is a well developed, well nourished female lying in hospital bed in no acute distress. NEUROLOGIC: She is awake, alert and oriented. Follows commands. No focal deficits. HEENT: Head is atraumatic and normocephalic. Pupils are equal, round and reactive to light. Oral mucosa is moist. NECK: Trachea is midline. CHEST: Clear to auscultation. CARDIOVASCULAR: Irregular rate and rhythm. S1 and S2 are noted. GASTROINTESTINAL: Soft, nondistended and nontender. Bowel sounds positive. EXTREMITIES: No edema. Pulses are 1+ bilaterally. DIAGNOSTIC DATA: Chest x-ray is pending. EKG with atrial fibrillation with RVR. WBC 10.8, hemoglobin 13.9, hematocrit 42.7, platelet count 345. Sodium 141, potassium 4.3, chloride 106, CO2 24, anion gap 11, BUN 25, creatinine 0.9, glucose 140. LFTs negative. Troponin negative. ASSESSMENT AND PLAN: 1. Atypical chest pain in a patient with known coronary artery disease: Will admit her and consult Cardiology to see if she needs inpatient ischemic evaluation as she reports she has not had a heart catheterization or ischemic evaluation in multiple years. Will trend cardiac enzymes. She has recently had an echocardiogram which showed an ejection fraction of 55% to 60% with poor visualization of endocardial borders. 2. Panhypopituitarism: Stable. Continue home medications once reconciled. 3. History of coronary artery disease with atypical chest pain: Please see #1. 4. Hypertension: Continue home medications once reconciled. 5. Hypothyroidism: Stable. Continue home medications. 6. Atrial flutter/fibrillation: Increase Sotalol. Follow up TSH. Continue her home Eliquis. 7. Deep venous thrombosis with Eliquis. Further recommendations to follow. Dictated by NIURKA Alatorre for Edson Edwards MD cc: NIURKA Alatorre MD I agree with most components of history, physical, assessment and plan. A separate addendum has been dictated. NITA
[2019-02-02 16:18] LABS: FREE T4 1.18 ng/dL (0.93-1.70); TSH 0.04 uIUmL (0.27-4.20)
--- NOTE | 2019-02-02 16:50 | Diag Imaging Result Doc PS360 ---
CHEST-2 VIEWS - 02/02/2019 INDICATION: chest pain COMPARISON: 01/07/2019 FINDINGS: The lungs are normally expanded and clear. Heart size and mediastinal contours are normal. No pneumothorax or pleural effusion. IMPRESSION: Negative exam. Electronically signed by Amador Cuellar 02/02/2019 4:47 PM
--- NOTE | 2019-02-02 19:02 | HISTORY AND PHYSICAL ---
ADDENDUM: I agree with most components of history, physical, assessment and plan. In brief, Ms. Allison is 68 years old lady with past medical history of paroxysmal atrial fibrillation, atrial flutter requiring cardioversion in December 2018, coronary artery disease status post stent twice at least 4 years ago, panhypopituitarism secondary to pituitary adenoma excision and iron deficiency anemia who came in with complaints of palpitation which started today morning. In emergency room she was found to have atrial flutter with 2 is to 1 block and received intravenous diltiazem, following which her heart rate became under control. At the time of my evaluation she is denying any more palpitation, chest pain or shortness of breath. She took her morning sotalol. Currently vitals detect temperature of 98.6 degrees, pulse 85, respiratory rate 20, blood pressure 127/71, saturating 93% on room air. PHYSICAL EXAMINATION: She does not appear in any acute distress. She has regularly irregular heart rhythm, S1, S2 normal. No murmur, rub, or gallop. ABDOMEN: Obese, soft, nontender. No lower extremity edema. LABS: Evaluation suggest thyrotoxicosis with a very low TSH. ASSESSMENT AND PLAN: 1. Recurrent atrial flutter. I will increase her sotalol dose to 120 mg b.i.d. and continue her home anticoagulation with apixaban. I will appreciate Cardiology recommendation about adding further AV ulysses blocking agent. Her QTc is in acceptable range. I am also decreasing her levothyroxine dose as her TSH was too low. 2. History of coronary artery disease. Continue home atorvastatin, lisinopril. She is not listed to be taking any beta [place]. 3. Panhypopituitarism. Continue home hydrocortisone, levothyroxine. 4. Others, continue home alprazolam for anxiety, [place] for chronic pain, amlodipine for essential hypertension, vitamin B12 and omega-3 fatty acids. DISPOSITION: Patient remains inside the hospital as we monitor her on higher dose of sotalol and appreciate Cardiology recommendation if she would need any further intervention. Plan of care discussed with the patient and her family members at bedside. All of the questions have been answered. cc: Edson Edwards MD
[2019-02-02] MEDS: NORCO-10 PO SCH (19:03)
[2019-02-02] MEDS: BETAPACE PO SCH (20:24)
[2019-02-02] MEDS: ELIQUIS PO SCH (20:25)
[2019-02-02] MEDS: LIPITOR PO SCH (20:26)
[2019-02-02] MEDS: VITAMIN B-12 PO SCH ×2 (20:26→21:00)
[2019-02-02] MEDS ORDERED: BETAPACE PO SCH ×2 (21:00)
[2019-02-02] MEDS: XANAX PO SCH (21:39)
[2019-02-02 23:42] LABS: URINE SOURCE CLEAN CATCH
[2019-02-02 23:49] LABS: BILIRUBIN URINE NEGATIVE (NEGATIVE); BLOOD URINE NEGATIVE (NEGATIVE); COLOR YELLOW; GLUCOSE URINE NEGATIVE (NEGATIVE); KETONE URINE NEGATIVE (NEGATIVE); LEUKOCYTES URINE NEGATIVE (NEGATIVE); NITRITE URINE NEGATIVE (NEGATIVE); PROTEIN URINE NEGATIVE (NEGATIVE); TURBIDITY URINE CLEAR (CLEAR); UROBILINOGEN URINE NORMAL (NORMAL)
[2019-02-02 23:51] LABS: UR EPITHELIAL CELLS <10 /HPF (<10); URINE BACTERIA NEGATIVE /HPF; URINE RBC <10 /HPF (<10); URINE WBC <10 /HPF (<10)
[2019-02-03] MEDS: NORCO-10 PO SCH ×4 (02:46→22:09)
[2019-02-03] MEDS: BETAPACE PO SCH ×3 (06:10→22:08)
[2019-02-03 06:38] LABS: HEMOGLOBIN 12.8 g/dL (12.0-16.0); MCH 29.7 PG (27-31); MCV 92.8 FL (81-99); RBC 4.31 XMIL (4.2-5.4); RDW 13.5 % (11.5-14.5); WBC 12.41 X1000 (4.8-10.8)
[2019-02-03] MEDS ORDERED: SYNTHROID PO SCH ×2 (07:00→09:00)
[2019-02-03 07:05] LABS: AGAP 9; BUN 20 mg/dL (8-22); CALCIUM 8.6 mg/dL (8.8-10.2); CHLORIDE 99 mmol/L (98-107); COSMO 271; CREATININE 0.7 mg/dL (0.5-0.9); ESTIMATED GFR > 60; GLUCOSE 100 mg/dL (70-104); POTASSIUM 4.6 mmol/L (3.5-5.1); SODIUM 134 mmol/L (136-145); TCO2 26 mmol/L (25-35)
--- NOTE | 2019-02-03 08:24 | EKG Report ---
Test Performed on : 02/02/2019 11:56:03 AM Test Reason : palpitations Blood Pressure : / mmHG Vent. Rate : 128 BPM Atrial Rate : 256 BPM P-R Int : 000 ms QRS Dur : 086 ms QT Int : 252 ms P-R-T Axes : 220 -04 166 degrees QTc Int : 367 ms Atrial flutter. with 2:1 AV conduction. Low voltage QRS Nonspecific ST and T wave abnormality Abnormal ECG When compared with ECG of 10-JAN-2019 06:43, Atrial flutter. has replaced Sinus rhythm. Vent. rate has increased BY [address] now depressed in Lateral leads T wave inversion now evident in Lateral leads Unconfirmed Result
--- NOTE | 2019-02-03 08:26 | EKG Report ---
Test Performed on : 02/02/2019 1:31:21 PM Test Reason : chest pain, arrythmia Blood Pressure : / mmHG Vent. Rate : 085 BPM Atrial Rate : 250 BPM P-R Int : 000 ms QRS Dur : 098 ms QT Int : 256 ms P-R-T Axes : 000 -01 -29 degrees QTc Int : 304 ms Atrial flutter. with variable AV block. Low voltage QRS Incomplete right bundle branch block Nonspecific T wave abnormality Abnormal ECG When compared with ECG of 02-FEB-2019 11:56, (Unconfirmed) Vent. rate has decreased BY [address] no longer depressed in Inferior leads ST no longer depressed in Lateral leads Unconfirmed Result
[2019-02-03] MEDS: NORVASC PO SCH (08:37)
[2019-02-03] MEDS: VITAMIN D PO SCH (08:37)
[2019-02-03] MEDS: ASPIRIN EC PO SCH (08:37)
[2019-02-03] MEDS: CORTEF PO SCH ×3 (08:38→16:31)
[2019-02-03] MEDS: ELIQUIS PO SCH ×2 (08:38→22:09)
[2019-02-03] MEDS: FISH OIL CONCENTRATE PO SCH (08:38)
[2019-02-03] MEDS: DDAVP PO SCH (08:39)
[2019-02-03] MEDS: PRINIVIL PO SCH (08:39)
[2019-02-03] MEDS: VITAMIN B-12 PO SCH ×2 (08:39→22:08)
[2019-02-03] MEDS: PROTONIX PO SCH (08:39)
[2019-02-03] MEDS ORDERED: ASPIRIN PO SCH (09:00)
--- NOTE | 2019-02-03 14:13 | EKG Report ---
Test Performed on : 02/03/2019 2:08:02 PM Test Reason : afib Blood Pressure : / mmHG Vent. Rate : 088 BPM Atrial Rate : 258 BPM P-R Int : 000 ms QRS Dur : 106 ms QT Int : 394 ms P-R-T Axes : 000 015 027 degrees QTc Int : 476 ms Atrial fibrillation. Low voltage QRS Cannot rule out Anterior infarct , age undetermined Abnormal ECG When compared with ECG of 02-FEB-2019 13:31, (Unconfirmed) Atrial fibrillation. has replaced Atrial flutter. Incomplete right bundle branch block is no longer present Confirmed by Balaji DELGADO, Dayday ([id number]) on 02/04/2019 9:02:58 AM
--- NOTE | 2019-02-03 15:05 | CONSULTATION ---
DATE OF CONSULTATION: 02/03/2019 IMPRESSION: 1. Recurrent atrial fibrillation. 2. Paroxysmal atrial fibrillation. A. Status post previous pulmonary vein isolation procedure approximately 2 years ago. B. Status post initiation of sotalol 80 mg by mouth twice a day and cardioversion in the past 30 days. 3. Panhypopituitarism secondary to removal of pituitary adenoma. 4. Atherosclerotic coronary disease with history of previous coronary angioplasty/stenting of left circumflex coronary artery. 5. Hypertension. 6. Hyperlipidemia. 7. Diabetes mellitus. RECOMMENDATIONS: 1. Continue to monitor on telemetry. 2. Agree with increasing sotalol to 100 mg p.o. b.i.d. 3. Continue anticoagulation. 4. Free T4 in mid point of normal range. Low TSH not unexpected with panhypopituitarism and not useful for determining thyroid hormone replacement dose. Recommend continuing thyroid hormone replacement dose at her current level of 112 mcg p.o. daily which has been her dose for many years, as directed by her can capper in [place]. 5. If atrial fibrillation persists, will pursue elective cardioversion in the a.m. 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 She was found to be in recurrent atrial fibrillation. She is status post previous pulmonary vein isolation procedure 2 years ago. She had recurrent atrial fibrillation earlier this year and preferred not to have repeat ablation. She was started on sotalol 80 mg twice daily. She underwent elective cardioversion. Prior to her current admission, she had recurrence of tachy palpitations with some vague left-sided chest discomfort. Chest symptoms improved with control of heart rate. Patient admitted to telemetry and sotalol dose increased to 120 mg p.o. b.i.d. She also has continued on anticoagulation with Eliquis 5 mg p.o. b.i.d. PAST MEDICAL HISTORY: 1. Paroxysmal atrial fibrillation. 2. Atherosclerotic coronary disease with previous coronary angioplasty/stent of left circumflex coronary artery in the past. 3. Panhypopituitarism following removal of pituitary adenoma. 4. Hypertension. 5. Hypothyroidism. 6. Vitamin D deficiency. 7. Iron deficiency anemia. PAST SURGICAL HISTORY: Cholecystectomy, tubal ligation, tonsillectomy, removal of tubular adenoma and pulmonary vein isolation procedure for atrial fibrillation 2 years ago. ALLERGIES: She is allergic or intolerant to ciprofloxacin and iodinated contrast. MEDICATIONS PRIOR TO ADMISSION: As listed. SOCIAL HISTORY: She has a remote history of smoking but no longer smokes. She does not use alcohol. FAMILY HISTORY: Negative for premature coronary artery disease. REVIEW OF SYSTEMS: Pulmonary: Negative. Gastrointestinal: Negative. Constitutional: Negative. Remainder of the review of systems negative with 14 total systems reviewed. PHYSICAL EXAMINATION: General: This is an overweight, older, white female in no distress. Vital Signs: Blood pressure 100/72, heart rate 64 and irregular with ECG monitor showing atrial fibrillation. Oxygen saturation 95% on nasal cannula oxygen at 2 L per minute. HEENT Examination: Extraocular movements appear to be intact. Mucous membranes are moist. Neck: Supple, without jugular venous distention. There are no carotid bruits. Chest: Clear to auscultation bilaterally. Cardiac: Examination reveals an irregular rate and rhythm without appreciable murmur or gallop. Abdomen: Soft. Bowel sounds are normal. Extremities: Without edema. Neurologic: Examination reveals her to be alert and fully oriented. Speech is fluent. She moves all 4 extremities equally well. Skin: Warm and dry. Psychiatric: Examination reveals mood to be appropriate. Deep tendon reflexes tested in the right upper extremity and are slightly hyperreflexic. LABORATORY DATA: Includes white blood cell count 12.4, hematocrit 40.0, hemoglobin 12.8, platelet count 332,000. Sodium 134, potassium 4.6, chloride 99, carbon dioxide 26, BUN 20, creatinine 0.7, glucose 100. Troponin T less than 0.01, CPK 17. TSH 0.04, free T4 1.18. Albumin 3.8. DIAGNOSTIC DATA: ECG demonstrates atrial fibrillation with controlled ventricular rate response and low-voltage QRS. Nonspecific T-wave abnormality demonstrated. cc: Иван Mcintosh MD
--- NOTE | 2019-02-03 16:47 | PROGRESS NOTE ---
DATE: 02/03/2019 INTERVAL HISTORY: No acute overnight event events. The patient still continues to experience occasional palpitation. On reviewing chart, she did have tachycardia one time and then had also developed bradycardia. She is denying any dizziness or chest pain at the moment. She has been on higher dose of sotalol. OBJECTIVE: Currently vitals suggest temperature of 97.4 degrees, pulse 67, respiratory blood pressure 115/74, saturating 99% on 2 L nasal cannula. On physical examination, does not appear in acute distress. Irregularly irregular heart rhythm. S1, S2 normal. No murmur or gallop. Abdomen is soft, nontender. No lower extremity edema. She is alert, oriented x3. LABORATORY DATA: Labs suggestive of WBC of 12,000, normal hemoglobin, hematocrit, platelet count. Normal electrolytes. MICROBIOLOGY: No data. IMAGING: No data. DIAGNOSTIC STUDIES: Telemetry strips today has been showing atrial flutter with variable AV block. ASSESSMENT AND PLAN: 1. Recurrent atrial flutter. Continue sotalol at 120 mg b.i.d. dose and anticoagulation with her home apixaban. Her QTc is in acceptable range. Cardiology on board. The patient might require DC cardioversion depending on her clinical condition tomorrow. 2. History of coronary artery disease. Continue home atorvastatin, lisinopril. She is not listed to be taking beta n[place]. 3. Panhypopituitarism. Continue home hydrocortisone, levothyroxine. 4. Others: Continue alprazolam for anxiety, [place] for chronic pain, amlodipine for essential hypertension, vitamin B12, omega-3 fatty acid. DISPOSITION: Patient remains inside the hospital on high dose of sotalol. Awaiting conversion to sinus rhythm. Plan of care discussed with the patient and her family at bedside. All of their questions have been answered satisfactorily. cc: Edson Edwards MD
[2019-02-03] MEDS: XANAX PO SCH (22:08)
[2019-02-03] MEDS: LIPITOR PO SCH (22:08)
[2019-02-04] MEDS: NORCO-10 PO SCH ×3 (02:44→14:38)
[2019-02-04 06:25] LABS: HEMATOCRIT 35.9 % (37.0-47.0); HEMOGLOBIN 11.6 g/dL (12.0-16.0); MCH 30.4 PG (27-31); MCHC 32.3 g/dL (33-37); MCV 94.2 FL (81-99); MPV 8.9 FL (7.4-10.4); RBC 3.81 XMIL (4.2-5.4); RDW 13.2 % (11.5-14.5); WBC 8.54 X1000 (4.8-10.8)
[2019-02-04 06:51] LABS: AGAP 3; BUN 18 mg/dL (8-22); CALCIUM 8.5 mg/dL (8.8-10.2); CHLORIDE 94 mmol/L (98-107); COSMO 261; CREATININE 0.6 mg/dL (0.5-0.9); ESTIMATED GFR > 60; GLUCOSE 100 mg/dL (70-104); POTASSIUM 4.3 mmol/L (3.5-5.1); SODIUM 129 mmol/L (136-145); TCO2 32 mmol/L (25-35)
[2019-02-04] MEDS ORDERED: SYNTHROID PO SCH (07:00)
--- NOTE | 2019-02-04 07:37 | EKG Report ---
Test Performed on : 02/04/2019 07:13:31 AM Test Reason : afib Blood Pressure : / mmHG Vent. Rate : 052 BPM Atrial Rate : 052 BPM P-R Int : 174 ms QRS Dur : 096 ms QT Int : 484 ms P-R-T Axes : 044 016 015 degrees QTc Int : 450 ms Sinus bradycardia. with sinus arrhythmia. Low voltage QRS Nonspecific ST abnormality Abnormal ECG When compared with ECG of 03-FEB-2019 14:08, (Unconfirmed) Sinus rhythm. has replaced Atrial fibrillation. Vent. rate has decreased BY 36 BPM Nonspecific T wave abnormality, improved in Inferior leads Confirmed by Balaji DELGADO, Dayday ([id number]) on 02/04/2019 9:08:02 AM
[2019-02-04] MEDS: BETAPACE PO SCH (07:53)
[2019-02-04] MEDS: PRINIVIL PO SCH (08:35)
[2019-02-04] MEDS: ASPIRIN EC PO SCH (08:35)
[2019-02-04] MEDS: ELIQUIS PO SCH (08:35)
[2019-02-04] MEDS: DDAVP PO SCH (09:00)
[2019-02-04] MEDS: CORTEF PO SCH ×3 (09:00→16:19)
[2019-02-04] MEDS ORDERED: MIRALAX PO SCH (09:00)
[2019-02-04] MEDS: VITAMIN D PO SCH (10:43)
[2019-02-04] MEDS: VITAMIN B-12 PO SCH (10:43)
[2019-02-04] MEDS: FISH OIL CONCENTRATE PO SCH (10:44)
[2019-02-04] MEDS: PROTONIX PO SCH (10:44)
[2019-02-04] MEDS: NORVASC PO SCH (10:45)
[2019-02-04] MEDS ORDERED: MAGNESIUM SULFATE 2 GM/S.W.I. 2 GM/50 ML IVPB IV SCH (15:00)
[2019-02-04 15:34] VITALS: BP 124/61
--- NOTE | 2019-02-04 15:47 | PROGRESS NOTE ---
DATE: 02/04/2019 Overnight no acute events. SUBJECTIVE: She is feeling fine. Denies any chest pain, shortness of breath. She denies any more palpitation. OBJECTIVE: Vital signs: Temperature 97.7 degrees, pulse 50, respiratory rate 20, blood pressure 111/52, saturating 95% on room air. General: Does not appear in any acute distress. HEENT: Oral cavity is moist. Lungs: Air entry bilaterally equal. No wheeze, rhonchi, crackles. Cardiovascular: Regular heart rhythm. Appears sinus on bedside monitor. S1, S2 normal. No murmur or gallop. Abdomen: Soft, nontender. Extremities: No lower extremity edema. Neurologic: She is alert and oriented x3. LABS: Suggestive of no leukocytosis. Acceptable range of hemoglobin. Normal platelet. Sodium of 129, chloride of 94. Normal kidney function. No new microbiological data. IMAGING: No chest x-ray new imaging. Electrocardiogram today suggestive of sinus bradycardia. She does have QTc of 450. There was low voltage QRS complex. ASSESSMENT: 1. Recurrent atrial flutter. 2. History of coronary artery disease. 3. Panhypopituitarism. 4. Anxiety. 5. Chronic pain. 6. Essential hypertension. PLAN: Continue sotalol at 120 mg p.o. b.i.d. dose. Continue home Eliquis. Continue all of her other home medications. I am repeating her magnesium. I will appreciate Cardiology recommendation. If no further medical intervention is planned, my plan is to discharge her home on high dose of sotalol and outpatient Cardiology followup. cc: Edson Edwards MD
--- NOTE | 2019-02-04 16:18 | DISCHARGE SUMMARY ---
ADMISSION DATE: 02/02/2019 DISCHARGE DATE: 02/04/2019 DISCHARGE DISPOSITION: Home with family. CONSULTATION DURING HOSPITALIZATION: Cardiology. PROCEDURES DURING HOSPITALIZATION: So far none. DISCHARGE DIAGNOSIS: Atrial flutter with rapid ventricular rate. OTHER DIAGNOSES: 1. History of recurrent atrial flutter status post DC cardioversion in the past, on anticoagulation. 2. History of chronic pain. 3. Coronary artery disease in the past requiring stent. 4. History of iron deficiency anemia. 5. Essential hypertension. 6. 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 7. Hypothyroidism, probably is part of panhypopituitarism. 8. Vitamin D deficiency. 9. Hyperlipidemia. 10. Anxiety. 11. Chronic pain. DISCHARGE MEDICATIONS: Alprazolam 0.5 mg tablet 1.5 tablets at nighttime, atorvastatin 20 mg at nighttime, [place] 10 one tablet q.6 hours as needed for pain, amlodipine 2.5 mg tablet daily, vitamin B12 100 mcg p.o. b.i.d., hydrocortisone 10 mg tablet 1 tablet in the morning, 0.5 tablets with supper, and 0.5 tablet with lunch, desmopressin 0.1 mg tablet 0.5 tablet daily, aspirin 81 mg daily, apixaban 5 mg b.i.d., omega-3 fatty acids, fish oil 1 capsule daily, lisinopril 20 mg daily, MiraLAX 17 g p.o. every other day for constipation, pantoprazole 40 mg daily, levothyroxine 112 mcg tablet daily, cholecalciferol 1000 units daily, sotalol 120 mg p.o. b.i.d. VITAL SIGNS: At the time of discharge, temperature 97.7 degrees, pulse 50 per minute, respiratory rate 20, blood pressure 110/52, saturating 95% room air. PHYSICAL EXAMINATION: General: Does not appear in acute distress. HEENT: Oral cavity is moist. Lungs: Air entry bilaterally equal. No wheezes, rhonchi, crackles. Cardiovascular: S1, S2 normal. No murmur, rub, or gallop. Regular heart rhythm. Appears sinus on bedside monitor. Abdomen: Soft, nontender. Extremities: No lower extremity edema. Neurologic: The patient is alert and oriented x3. She is able to come out of bed, go to the bathroom without any symptoms. She denies any palpitation. LABORATORY: WBC 8.5, hemoglobin 11.6, platelet of 273,000. Sodium 129, chloride 94, BUN 18, creatinine 0.6, magnesium of 1.6, which is being repleted. SIGNIFICANT MICROBIOLOGIC DATA: None. IMAGING DURING HOSPITAL ADMISSION: Chest x-ray did not have any consolidation, pneumothorax, or pleural effusion. EKG on admission had atrial flutter with 2:1 conduction. EKG at the time of discharge on February 04 had sinus bradycardia with sinus arrhythmia and it was low voltage QRS. HOSPITAL COURSE SUMMARY: Ms. Allison is a 68-year-old lady with the above-mentioned past medical history, who came to the emergency room on February 02 with a chief complaint of chest discomfort since the morning. However, her major symptom was palpitations which she has been experiencing since yesterday, which started getting worse in the morning time. While in the emergency room, her chest discomfort had resolved; however, she was found to have rapid heart rate with pulse of 126 per minute. She was also found to have blood pressure of 150/90. The EKG had atrial flutter with 2:1 block. Apparently she had a similar episode a month prior which required inpatient admission. While inside the hospital, her sotalol dose was increased from 80 mg b.i.d. to 120 mg b.i.d. and she was monitored overnight. The next day her rhythm had spontaneously converted back to 120 mg b.i.d. with the use of sotalol. The patient was asymptomatic and she was denying chest pain and palpitation, so it was decided to discharge the patient. The patient was advised to follow up with Dr. Mcintosh as an outpatient. Plan of care was discussed with her and her family at bedside. All of their questions have been answered. Time spent: >30 minutes. cc: MD NITA Huerta
== END 2019-02-04 17:08 | disposition home or self-care (01) ==
LOC: ED 11:44 → 4N 11:44
PROVIDERS: ATTEND Internal Medicine
CPT/HCPCS: 71020; 71046; 80048; 80053; 81001; 82550; 83735; 84439; 84443; 84484; 85025; 85027; 93005; 93010; 94761; 96374; 99285; A9270; J2405; J3475